=== PATIENT | male | born 1990 | race Caucasian/White ===

== ENCOUNTER 2019-09-10 09:47 | Day surgery (SDC) | payer OTHER ==
[~2019-09-10 09:47] MED LIST: CEFAZOLIN SODIUM IN 0.9 % NACL 2 GM/100 ML BAG IV ONE; LACTATED RINGERS 1,000 ML IV ONE
--- NOTE | 2019-09-10 10:20 | ANESTHESIA ---
Pre-Anesthesia VS, & Labs - Diagnosis right finger endocroma - Procedure right ring finger endochroma excision with bone grafting Vital Signs: Temp Pulse Resp BP Pulse Ox 35.7 C L 63 16 130/81 H 97 09/10/19 09:54 09/10/19 09:54 09/10/19 09:54 09/10/19 09:54 09/10/19 09:54 Height 6 ft 1 in Weight (kg) 90 kg - NPO >8 hours Home Medications and Allergies Home Medications: Ambulatory Orders No Known Home Medications 09/07/19 No Known Home Medications 09/07/19 Allergies/Adverse Reactions: Allergies Allergy/AdvReac Type Severity Reaction Status Date / Time No Known Drug Allergies Allergy Verified 09/07/19 11:30 Anes History & Medical History - Anesthetic History Anesthesia Complications: reports: No previous complications - Medical History Cardiovascular: reports: None Pulmonary: reports: None Gastrointestinal: reports: None Urinary: reports: None Musculoskeletal: reports: Other Endocrine/Autoimmune: reports: None Skin: reports: None Exam General: Alert Dental: WNL Mouth Opening: Greater than 4 Fingerbreadths Mallampati classification: I Thyromental Distance: greater than 6 cm Respiratory: Lungs clear Cardiovascular: Regular rate, Normal S1, Normal S2 Plan Anesthesia Type: Supraclavicular Block Consent for Procedure(s) Verified and Reviewed: Yes Code Status: Attempt Resuscitation ASA classification: 1-Healthy patient Is this case an emergency?: Yes
[2019-09-10] MEDS ORDERED: BUPIVACAINE 0.25% PF 10 ML VIAL ONE (10:37)
[2019-09-10] MEDS ORDERED: fentaNYL 100 MCG/2 ML VIAL IVP ONE (11:01)
[2019-09-10] MEDS ORDERED: MIDAZOLAM 2 MG/2 ML VIAL IVP ONE (11:01)
[2019-09-10] MEDS ORDERED: PROPOFOL 200 MG/20 ML VIAL IVP ONE (11:01)
[2019-09-10] MEDS ORDERED: DEXAMETHASONE 4 MG/ML VIAL IVP ONE (11:01)
[2019-09-10] MEDS ORDERED: LIDOCAINE 1%-EPI 1:100000 20 ML MDV ONE (11:06)
[2019-09-10] MEDS ORDERED: LIDOCAINE 1%-EPI 1:100000 20 ML MDV SUBQ ONE (11:40)
[2019-09-10] MEDS ORDERED: BUPIVACAINE 0.25% PF 30 ML VIAL SUBQ ONE (11:41)
[2019-09-10] MEDS ORDERED: ONDANSETRON 4 MG/2 ML VIAL IVP PRN (12:30)
[2019-09-10] MEDS ORDERED: oxyCODONE 5 MG TABLET PO PRN (12:30)
[2019-09-10] MEDS ORDERED: LACTATED RINGERS 1,000 ML IV ONE (12:33)
--- NOTE | 2019-09-10 12:40 | OPERATIVE REPORT ---
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 No gripping or lifting for 6 weeks and until bone graft has consolidated Indication For Surgery: 28-year-old male sustained a low-energy pathologic fracture of the right ring finger on August 03. The fracture was managed nonoperatively to allow for consolidation to begin and then mass excision was indicated to prevent future fracture and allow for complete healing of the current fracture. The risks, benefits, and alternatives were discussed. Risks include pain, bleeding, infection, stiffness, damage to nearby structures, numbness, lack of symptom relief, need for further surgery, DVT, PE, stroke, and . Written consent was obtained. The patient was met in the preoperative holding on the day of the procedure. Operative extremity was signed. Consent was verified. They desire to proceed. They were brought to the operating room and placed in the supine position. A well-padded forearm tourniquet was applied. They were prepped and draped in the standard fashion. A surgical timeout was held will be confirmed the patient procedure, identity, allergies, antibiotics, image,s laterality, and finger. All were in agreement we proceeded. A mixture of 1% lidocaine with epinephrine was placed dorsally in a ring block. The fingertip stayed well perfused throughout the case. A longitudinal incision was made over the base of the proximal phalanx and a full-thickness skin flap was created overlying the extensor tendons. The natural raphae and the extensor tendon was exploited and split. The location of the enchondroma was confirmed on fluoroscopy and a small cortical window was made using a 1.6 K wire penetrat ions and an osteotome. A curette was used to remove the enchondroma and I proceeded in a systemic fashion moving from medial lateral proximal to distal ensuring to get all of the mass. Fluoroscopy was used to ensure that my instruments were at the extent of the cavity. The cavity was irrigated and suctioned dry. The 1.6 K wire was used to penetrate to the distal aspect of the cavity and to recannulate the canal. The void was then filled with demineralized bone matrix and packed. The wound was irrigated copiously. The extensor tendon was reapproximated with 3-0 Vicryl and the skin was closed with 3-0 Vicryl in the deep dermis and a running Monocryl in the skin. A sterile dressing was applied. The patient was awakened and transferred to recovery room.
[2019-09-10 12:54] VITALS: BP 132/66
== END 2019-09-10 09:48 | disposition home or self-care (01) ==
LOC: SDS 09:47
PROVIDERS: ATTEND Orthopaedic Surgery
PROC: 0PBT0ZZ Excision of Right Finger Phalanx, Open Approach (ICD-10-PCS; principal; 2019-09-10 11:00)
DX: D16.11 Benign neoplasm of short bones of right upper limb (principal); M84.44 Pathological fracture, hand and fingers
CPT/HCPCS: 26260; C1713; J0690; J7120

== ENCOUNTER 2023-01-29 08:38 | Outpatient (CLI) | payer OTHER ==
--- NOTE | 2023-01-29 09:31 | SLEEP CARE CONSULTATION ---
Information from patient questionnaire entered by Shanita Hewitt. I have reviewed and concur with the information entered by Shanita Hewitt. This document represents the service I personally performed and the decisions made by me, Lou De Guzman ARNP. History of Present Illness Service Date and Time: 01/29/2023 0838 Reason for Visit: New patient, Previously diagnosed sleep apnea Chief Complaint: reports: Unrefreshed sleep, Snoring, Fatigue, Frequent awakenings at night Date of Onset: 1YR 6MONTHS Usual bedtime: 10-11PM Time it takes to fall asleep: 45MIN Snores at night: Yes Observed to quit breathing while asleep: No Sleeps alone due to snoring: Yes Number of times waking at night: 1-2 X PER HR Reasons for waking at night: reports: Snoring, Pain, Bathroom, Other (NOISE). denies: Choking, Gasping for air Toss, Turn, or Twitch while sleeping: Yes Recalls having dreams: Yes Usually gets out of bed at: 7-8AM Feels refreshed in the morning: No Morning headache: Yes (3-4 days a wk; varies from a few hours to afternoon) Sleepy or fatigued during the day: Yes Ever fallen asleep while driving: No Takes day naps: Yes (tries not to nap; 1-2 times a week) Dreams during day naps: No Prior sleep studies: Yes Year and Where: 10/20/2022 thru [facility] Type of Sleep Study: Polysomnography Additional HPI information: I had the pleasure of seeing LOAN JOSE R today regarding the possibility of him having a sleep disorder. His current complaints are fatigue, frequent night awakenings, snoring and unrefreshed sleep. He had a sleep study done through the as part of from them and was found to have mild obstructive sleep apnea with an average AHI 8.3 and vee oxygen saturation of 90%. This was done through [facility] in [place], [place]. They were not able to start him on therapy because [facility] and was [facility] here. 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 Patient is Single and lives in . Have you smoked in the past 12 months: No Alcohol use: Yes Alcohol amount and frequency: 6-10 3 X WEEK Caffeine use: Yes Caffeine amount and frequency: 2CUPS 5C WEEK Family History Family history of sleep disordered breathing: Yes Family Hx Sleep Apnea: Father: Snoring, Sibling: Snoring Allergies and Home Medications Known drug allergies: No Drug allergies reviewed: Yes Home medication list reviewed: Yes Allergy and home medication list: Allergies No Known Drug Allergies Allergy (Verified 01/28/23 09:21) Medications: Methocarbamol, prn Review of Systems Weight gain over past 5 years: 10-15 Cardiovascular: denies: high blood pressure Gastrointestinal: reports: abdominal pain. denies: heartburn Neurological: reports: headaches, head trauma (tree fell on him in October) Psychiatric: reports: anxiety (seeing therapist), depression Ear/Nose/Throat: reports: nasal congestion, sinus problems, injury to nose, wisdom teeth removed. denies: tonsillectomy Endocrine: reports: sluggishness Musculoskeletal: reports: joint pain, neck pain, back pain, muscle pain or cramping, mobility problems Physical Exam Vital signs obtained and entered by: SHANITA Pierre MA Blood Pressure: 110/60 (LEFT ARM) Cuff size: regular Heart Rate: 58 O2 Saturation: 98 Height: 6 ft Weight: 204 lb 3.2 oz Body Mass Index: 27.6 BMI Classification: Overweight Neck circumference: 15.5 Mouth and throat: narrow oropharynx Soft palate: long Hard palate: normal Uvula: normal Uvula visualization: 25% Mallampati Class III Tongue: enlarged in size with teeth santos on lateral edges Tonsils: small Neck: normal w/o lymphadenopathy or thyromegaly Heart: regular rate and rhythm Lungs: clear bilaterally Impression and Plan 1. Obstructive Sleep Apnea-Hypopnea Syndrome, mild, with lowest oxygen saturation of 90%, as seen in his sleep study done in 09/2022. He is not currently on any therapy for this. I discussed with patient the different therapies that are recommended for his JACKIE. He has mild obstructive sleep apnea and may benefit from oral appliance therapy or CPAP therapy. I reviewed the advantages of both and he would like to check on insurance coverage for these before moving forward. He is moving to [place] in a few months after from the [place]. He will be given information on compliance for CPAP and DME companies. He will also be given list of dentists in [facility] who are certified in oral appliances. He will with his choice. I advised him to avoid sleeping supine to reduce apneas until he is using therapy. He was also encouraged to try to lose weight, his BMI is 27.6. * Patient will call with choice of therapy * Attempt to lose weight. * Avoid alcohol consumption near bedtime. * Avoid supine sleep. * The patient is again cautioned about driving until sleepiness completely resolves. * Return to be determined by choice of therapy. I will assess response to therapy at that time. Counseling Topics: Sleeping position, Weight loss health impact Visit Type: In Office Time Spent with Patient (minutes): 40 Provider Statement: I spent 100% of the Face to Face Visit with the patient with greater than 50% spent counseling the patient and coordination of care.
[2023-01-29 09:37] VITALS: BP 110/60; O2SAT 98
== END 2023-01-29 08:39 | disposition home or self-care (01) ==
LOC: SC 08:38
PROVIDERS: ATTEND Nurse Practitioner Family
DX: G47.33 Obstructive sleep apnea (adult) (pediatric) (principal); E66.3 Overweight; Z68.27 Body mass index [BMI] 27.0-27.9, adult
CPT/HCPCS: 99203; 99212

== ENCOUNTER 2023-05-14 09:13 | Outpatient (CLI) | payer OTHER ==
--- NOTE | 2023-05-14 13:21 | MRI Report ---
PROCEDURE: SHOULDER WO - RT INDICATIONS: PAIN IN RIGHT SHOUDLER TECHNIQUE: Noncontrast oblique coronal T2 fast spin echo with fat saturation, oblique sagittal T1 spin echo and T2 fast spin echo with fat saturation, axial T1 spin echo and T2 fast spin echo with fat saturation t hrough the shoulder. COMPARISON: None. FINDINGS: Image quality: Excellent. Rotator cuff: Low-grade bursal surface partial-thickness tear involving distal supraspinatus at its i nsertion on humeral head is seen extending to musculotendinous junction. Distal infraspinatus tendino sis is noted. Low-grade partial thickness involving superior fibers of distal subscapularis is also s een. No full-thickness rotator cuff tendon rupture. No significant rotator cuff muscle atrophy on sag ittal images. Bones and bursae: No bone marrow contusions or fractures. Mild acromioclavicular joint osteophytic c hanges are seen with joint space narrowing, subchondral sclerosis and small inferior marginal osteoph yte formation depressing on musculotendinous junction of supraspinatus. The acromion demonstrates con ventional anatomy, without an os acromiale. Small amount of subacromial subdeltoid bursal fluid is se en. Capsule and soft tissues: There is fraying of superior anterior labrum with signal abnormality at 1 t o 2:00 position suggestive of superior anterior labral tear. The long head of the biceps tendon demon strates appears thickened. The rotator interval appears normal, without fibrosis. The coracohumeral ligament is normal in thickness. IMPRESSION: 1. Low-grade bursal surface partial-thickness tear involving distal supraspinatus extending to muscul otendinous junction. Distal infraspinatus tendinosis. Low-grade partial-thickness tear involving supe rior fibers of distal subscapularis. No full-thickness rotator cuff tendon rupture. 2. Mild acromioclavicular joint osteoarthritis. No shoulder fracture or dislocation. Small amount of subacromial subdeltoid bursal fluid. No gross loose bodies. 3. Suggestion of subtle superior anterior labral tear at 1 to 2:00 position. 4. Proximal intra-articular portion of long head of biceps tendinosis. Reviewed by: Shahbaz Goins MD on 05/14/2023 1:20 PM PST Approved by: Shahbaz Goins MD on 05/14/2023 1:20 PM PST Station ID: [id number]
== END 2023-05-14 09:14 | disposition home or self-care (01) ==
LOC: DI 09:13
PROVIDERS: ATTEND Preventive Medicine Aerospace Medicine
DX: M75.111 Incomplete rotator cuff tear or rupture of right shoulder, not specified as traumatic (principal); M19.011 Primary osteoarthritis, right shoulder; M67.921 Unspecified disorder of synovium and tendon, right upper arm

== ENCOUNTER 2023-06-05 07:18 | Outpatient (CLI) | payer OTHER ==
--- NOTE | 2023-06-05 10:58 | MRI Report ---
PROCEDURE: LUMBAR SPINE WO INDICATIONS: CERVICAL LUMBAR RADICULOPTHY HIST OF TRAUMATIC FX TECHNIQUE: Noncontrast sagittal T1 spin echo and T2 fast echo, sagittal STIR, axial T1 and T2 fast spin echo thr ough the lumbar spine. In cases with scoliosis, additional coronal T2 fast spin echo may be performe d. COMPARISON: None. FINDINGS: Image quality: Excellent. Alignment and Curvature: There is normal bony alignment. Bone Marrow: Marrow is of normal overall signal. No acute vertebral body compression fractures. Spinal Cord: Conus medullaris terminates at the L1 level. Visualized cord demonstrates normal signa l and size. Paraspinous Soft Tissues: No paravertebral masses. T11-T12: Normal in appearance. T12-L1: Normal in appearance. L1-L2: Normal in appearance. L2-L3: Normal in appearance. L3-L4: Very mild facet hypertrophy. No canal stenosis or foraminal stenosis. L4-L5: Mild facet hypertrophy. No canal stenosis or foraminal stenosis. L5-S1: Posterior annulus tear plus minimal central posterior disc protrusion. There is no impingeme nt on nerve root structures. No canal stenosis or foraminal stenosis. IMPRESSION: 1. There is posterior annulus tear with minimal central posterior disc protrusion without nerve root impingement at L5-S1. 2. Mild facet arthropathy at L3-L4 and L4-L5. 3. No canal stenosis or foraminal stenosis. Reviewed by: Jameel Jiménez MD on 06/05/2023 10:57 AM PST Approved by: Jameel Jiménez MD on 06/05/2023 10:57 AM PST Station ID: [id number]
--- NOTE | 2023-06-05 11:01 | MRI Report ---
PROCEDURE: THORACIC SPINE WO INDICATIONS: CERVICAL LUMBAR RADICULOPTHY HIST OF TRAUMATIC FX TECHNIQUE: Noncontrast sagittal T1 spine echo and T2 fast spin echo, sagittal STIR, axial T1 and T2 fast spin ec ho through the thoracic spine. COMPARISON: None. FINDINGS: Image quality: Excellent. Alignment and Curvature: There is normal bony alignment. Bone Marrow: Marrow is of normal overall signal. No acute vertebral body compression fractures. Ol d minimal superior endplate compressions of T3, T4, and T5, as well as an old moderate to severe comp ression of the superior endplate of T6 with acute angle kyphosis at this level. Spinal Cord: Visualized spinal cord is normal in size and signal. Mild prominence of the central can al of the thoracic cord. Paraspinous Soft Tissues: No paravertebral masses. Miscellaneous: On axial images, central canal and foramina appear widely patent at all scanned level s. IMPRESSION: 1. Old compressions involving T3, T4, T5, and T6. A compressions of T3-T5 aren't minimal, and the T6 compression is moderate to severe. There is associated acute angle kyphosis at T5-T6. 2. No acute bony abnormality. 3. No canal stenosis or foraminal stenosis. Reviewed by: Jameel Jiménez MD on 06/05/2023 11:00 AM PST Approved by: Jameel Jiménez MD on 06/05/2023 11:00 AM PST Station ID: [id number]
--- NOTE | 2023-06-05 11:06 | MRI Report ---
PROCEDURE: CERVICAL SPINE WO INDICATIONS: CERVICAL LUMBAR RADICULOPTHY HIST OF TRAUMATIC FX TECHNIQUE: Noncontrast sagittal T1 spin echo and T2 fast spin echo, sagittal STIR, foraminal oblique sagittal T2 fast spin echo, and axial gradient echo or T2 fast spin echo through the cervical spine. COMPARISON: None. FINDINGS: Image quality: Excellent. Alignment and Curvature: Trace anterolisthesis of C4 on C5 and trace retrolisthesis of C5 on C6. [employer]ry mild anterior vertebral body height loss involving C5 and C6. Bone Marrow: Marrow demonstrates normal overall signal. Spinal Cord: Visualized spinal cord has normal size and signal. No cerebellar tonsillar herniation. Paraspinous Soft Tissues: No paravertebral masses. Prevertebral soft tissues are normal in thicknes s. C2-C3: Normal in appearance. C3-C4: Mild left facet hypertrophy. No canal stenosis or foraminal stenosis. C4-C5: Mild left facet hypertrophy. Minimal disc bulge. Mild bilateral uncovertebral joint hypertrop hy. Moderate bilateral foraminal narrowing with mild flattening deformity on the exiting bilateral C5 nerve roots. C5-C6: Chronic disc height loss. Trace retrolisthesis of C5 on C6. AP diameter of the canal is 10.7 mm. Mild bilateral uncovertebral joint hypertrophy. Mild bilateral facet hypertrophy. Mild right fora krystle narrowing. C6-C7: Minimal disc bulge. Mild bilateral facet hypertrophy. No canal stenosis or foraminal stenosis . C7-T1: No canal stenosis or foraminal stenosis. IMPRESSION: 1. Cervical spondylitic change is centered at C4-C5 and C5-C6. 2. Mild multilevel facet arthropathy. 3. No canal stenosis. 4. Moderate bilateral foraminal narrowing at C4-C5. Reviewed by: Jameel Jiménez MD on 06/05/2023 11:05 AM PST Approved by: Jameel Jiménez MD on 06/05/2023 11:05 AM PST Station ID: [id number]
== END 2023-06-05 07:19 | disposition home or self-care (01) ==
LOC: DI 07:18
PROVIDERS: ATTEND Preventive Medicine Aerospace Medicine
DX: Z87.81 Personal history of (healed) traumatic fracture (principal); M47.22 Other spondylosis with radiculopathy, cervical region; M48.02 Spinal stenosis, cervical region; M47.816 Spondylosis without myelopathy or radiculopathy, lumbar region; M51.34 Other intervertebral disc degeneration, thoracic region